=== PATIENT | female | born 1945 | race Caucasian/White ===

== ENCOUNTER 2023-05-20 00:19 | Observation (INO) ==
[2023-05-20] MEDS ORDERED: Dextrose 50% Syringe 50 ml 25 GM/50 ML SYRINGE IV PUSH PRN (02:27)
[2023-05-20] MEDS ORDERED: Enoxaparin 40 MG/0.4 ML SYR SUBCUT SCH (03:00)
[2023-05-20 06:05] LABS: ABS Eosinophils 0.1 10^3/uL (0.0-0.5); ABS Lymphocytes 1.1 10^3/uL (1.0-4.8); ABS Monocytes 0.7 10^3/uL (0.0-0.9); ABS Neutrophils 7.1 10^3/uL (1.5-7.6); ABS Nucleated RBC 0.01 10^3/ul; Hematocrit 34.9 % (35-45); Hemoglobin 11.9 g/dL (11.5-14.3); Lymphocyte % 12.5 %; Mean Corpuscular Hemoglobin 29.6 pg (27-33); Mean Platelet Volume 8.9 fL (7.5-11.2); Nucleated Red Blood Cells % 0.1 %/100WBC (0.0-0.8); Platelet Count 151 10^3/uL (150-450); Red Blood Count 4.01 10^6/uL (3.63-4.92); Red Cell Distribution Width 13.9 % (12-17); White Blood Count 9.1 10^3/uL (3.8-11.8)
[2023-05-20 06:23] LABS: Calcium 8.5 mg/dL (8.6-10.3); Creatinine, Serum 0.91 mg/dL (0.51-0.95); Magnesium 1.6 mg/dL (1.9-2.7); Potassium 3.2 mmol/L (3.5-5.0)
[2023-05-20 07:08] LABS: TSH Ultra Thyroid Stim Horm 0.55 mcIU/mL (0.34-5.60)
[2023-05-20] MEDS: Enoxaparin 40 MG/0.4 ML SYR SUBCUT SCH (07:19)
[2023-05-20] MEDS: Isosorbide Mononit ER 30mg TAB PO SCH (08:51)
[2023-05-20] MEDS: Latanoprost 0.005% 2.5 ml BTL BOTH EYES SCH (08:52)
[2023-05-20] MEDS: Insulin GLARGINE 100 un/ml 10 ml VIAL SUBCUT SCH (08:52)
[2023-05-20] MEDS ORDERED: Potassium EFFERVES 25 meq TAB PO ONE (16:59)
[2023-05-20] MEDS ORDERED: Magnesium Sulfate IV 1GM/100ML 1 GM/100 ML BAG IV ONE (19:00)
[2023-05-20] MEDS ORDERED: Magnesium Sulfate 2 gm BAG 2 GM/50 ML BAG IVPB ONE (19:30)
[2023-05-21] MEDS: Insulin GLARGINE 100 un/ml 10 ml VIAL SUBCUT SCH (08:15)
[2023-05-21] MEDS: Latanoprost 0.005% 2.5 ml BTL BOTH EYES SCH (09:10)
[2023-05-21] MEDS: Enoxaparin 40 MG/0.4 ML SYR SUBCUT SCH (09:10)
[2023-05-21] MEDS: Isosorbide Mononit ER 30mg TAB PO SCH (09:11)
[2023-05-21 10:34] VITALS: BP 137/76
[2023-05-21 11:08] LABS: Hematocrit 34.6 % (35-45); Hemoglobin 11.7 g/dL (11.5-14.3); Mean Corpuscular Hemoglobin 29.6 pg (27-33); Mean Corpuscular Hgb Conc 33.9 g/dL (31-36); Mean Corpuscular Volume 87.2 fL (80-97); Mean Platelet Volume 8.7 fL (7.5-11.2); Platelet Count 153 10^3/uL (150-450); Red Blood Count 3.96 10^6/uL (3.63-4.92); Red Cell Distribution Width 14.2 % (12-17); White Blood Count 8.3 10^3/uL (3.8-11.8)
[2023-05-21 12:15] LABS: Calcium 9.2 mg/dL (8.6-10.3); Creatinine, Serum 1.01 mg/dL (0.51-0.95); Magnesium 2.1 mg/dL (1.9-2.7); Potassium 4.1 mmol/L (3.5-5.0); eGFR CKD-EPI 57.3 (>60)
== END 2023-05-21 13:30 | disposition home or self-care (01) ==
LOC: ED 00:19 → EDHOLD 00:19 → SUATTDRO 02:04 → MED 10:43
PROVIDERS: ADMIT Student in an Organized Health Care Education/Training Program; ATTEND Internal Medicine